=== PATIENT | female | born 1975 | race Caucasian/White ===

== ENCOUNTER 2020-08-19 23:49 | Emergency (ER) | payer OTHER ==
[2020-08-20 00:05] VITALS: BMI 25.6
[2020-08-20] MEDS ORDERED: ACETAMINOPHEN 1000 MG/100 ML BAG IVPB ONE (01:26)
[2020-08-20] MEDS ORDERED: MAG HYDROX/AL HYDROX/SIMETH 30 ML UNIT-DOSE CUP PO ONE (01:26)
[2020-08-20] MEDS ORDERED: ONDANSETRON 4 MG/2 ML VIAL IVPUSH ONE (01:26)
[2020-08-20] MEDS ORDERED: FAMOTIDINE 20 MG/50 ML IVPB 20 MG/50 ML MG IVPB ONE ×2 (01:27→03:08)
[2020-08-20] MEDS ORDERED: MAG HYDROX/AL HYDROX/SIMETH 30 ML UNIT-DOSE CUP ONE (03:08)
[2020-08-20] MEDS ORDERED: ACETAMINOPHEN INJECTION 100 ML IVPB ONE (03:08)
[2020-08-20] MEDS ORDERED: ONDANSETRON 4 MG/2 ML VIAL ONE (03:08)
[2020-08-20 03:28] LABS: BASO % 0.4 % (0-2.0); HEMATOCRIT 43.3 % (32.4-45.2); HEMOGLOBIN 14.5 GM/dL (10.7-15.3); LYMPH % 27.3 % (8-40); MCH 28.2 pg (25.7-33.7); MCHC 33.6 g/dl (32.0-36.0); MEAN CELL VOLUME 83.9 fl (80-96); NEUT % 65.3 % (42.8-82.8); PLATELET COUNT 317 K/MM3 (134-434); RBC 5.16 M/mm3 (3.60-5.2); RDW 13.6 % (11.6-15.6); WHITE BLOOD COUNT 10.8 K/mm3 (4.0-10.0)
[2020-08-20 03:52] LABS: CHLORIDE 96 mmol/L (98-107); SODIUM 132 mmol/L (136-145)
[2020-08-20 03:54] LABS: CALCIUM 9.3 mg/dL (8.5-10.1); GLUCOSE,RANDOM 391 mg/dL (74-106); LIPASE 191 U/L (73-393)
[2020-08-20 03:55] LABS: EPI CELLS 9 /uL (0-25.1); HYALINE CASTS 1 /uL (0-3.1); URINE APPEARANCE CLOUDY; URINE BACTERIA 211 /uL (0-1359); URINE BILIRUBIN NEGATIVE (NEGATIVE); URINE COLOR YELLOW; URINE GLUCOSE (UA) 3+ (NEGATIVE); URINE KETONE TRACE (NEGATIVE); URINE LEUK ESTERASE NEGATIVE (NEGATIVE); URINE NITRITE NEGATIVE (NEGATIVE); URINE PROTEIN NEGATIVE (NEGATIVE); URINE RBC 2 /uL (0-23.9); URINE UROBILINOGEN 0.2 mg/dL (0.2-1.0); URINE WBC 29 /uL (0-25.8)
[2020-08-20 03:55] LABS: ALBUMIN 3.8 g/dl (3.4-5.0); ANION GAP 11 MMOL/L (8-16); BLOOD UREA NITROGEN 11.3 mg/dL (7-18); CO2 26 mmol/L (21-32)
[2020-08-20 03:57] LABS: CREATININE 0.9 mg/dL (0.55-1.3); SGPT/ALT 28 U/L (13-61)
[2020-08-20 03:58] LABS: SGOT/AST 19 U/L (15-37)
[2020-08-20] MEDS ORDERED: SODIUM CHLORIDE 0.9% 500 ML INFUS.BAG IV ONE ×2 (03:58→06:25)
[2020-08-20 03:59] LABS: BILIRUBIN,TOTAL 0.3 mg/dL (0.2-1); TOT PROT 7.9 g/dl (6.4-8.2)
[2020-08-20 04:00] LABS: ALK PHOS 91 U/L (45-117)
[2020-08-20] MEDS ORDERED: metFORMIN HCL 500 MG TABLET (FP) PO ONE (04:07)
[2020-08-20] MEDS ORDERED: metFORMIN HCL 500 MG TABLET (FP) ONE (04:27)
[2020-08-20 07:11] VITALS: BP 98/62; PULSE 80; TEMP 98.5
== END 2020-08-20 10:35 | disposition home or self-care (01) ==
LOC: JER 23:49
PROC: 3E0333Z Introduction of Anti-inflammatory into Peripheral Vein, Percutaneous Approach (ICD-10-PCS; principal; 2020-08-19)
PROC: 3E033GC Introduction of Other Therapeutic Substance into Peripheral Vein, Percutaneous Approach (ICD-10-PCS; 2020-08-19)
PROC: 3E033GC Introduction of Other Therapeutic Substance into Peripheral Vein, Percutaneous Approach (ICD-10-PCS; 2020-08-19)
DX: R10.32 Left lower quadrant pain (principal); R11.2 Nausea with vomiting, unspecified
CPT/HCPCS: 36415; 74177-TC; 76830-TC; 80053; 81003; 82962; 83690; 84484; 84703; 85025; 87077; 87086; 93005; 93010; 99285-25; J0131

== ENCOUNTER 2022-09-14 23:18 | Emergency (ER) | payer OTHER ==
[2022-09-14 23:27] VITALS: BP 131/83; PULSE 85; RESP 17; TEMP 97.6; BMI 24.0
== END 2022-09-15 00:49 | disposition home or self-care (01) ==
LOC: JER 23:18 → JERFT 23:18
DX: L03.031 Cellulitis of right toe (principal); L03.032 Cellulitis of left toe
CPT/HCPCS: 82962; 99283-25